=== PATIENT | male | born 1970 | race Caucasian/White ===

== ENCOUNTER → 2017-07-17 | Outpatient (REF) | payer BC, OTHER ==
[2017-07-17 15:18] LABS: BASO # 0.1 10^3/uL (0.0-0.2); BASO % 0.9 % (0.0-1.0); EOS # 0.1 10^3/uL (0.0-0.50); EOS % 2.2 % (0.0-3.0); HEMATOCRIT 45.1 % (42.0-52.0); HEMOGLOBIN 15.5 g/dl (14.0-18.0); IMMATURE GRANULOCYTE % 0.2 % (0-3.0); LYMPH # 2.2 10^3/uL (1.5-4.5); LYMPH % 39.8 % (24.0-44.0); MEAN CORPUSCULAR HEMOGLOBIN 30.3 pg (27.0-33.0); MEAN CORPUSCULAR HGB CONC 34.4 g/dl (32.0-36.5); MEAN CORPUSCULAR VOLUME 88.3 fl (80.0-96.0); MONO # 0.4 10^3/uL (0.0-0.8); NEUTROPHILS # 2.7 10^3/uL (1.8-7.7); NEUTROPHILS % 48.9 % (36.0-66.0); PLATELET COUNT, AUTOMATED 220 10^3/uL (150-450); RED BLOOD COUNT 5.11 10^6/uL (4.30-6.10); RED CELL DISTRIBUTION WIDTH 11.9 % (11.5-14.5); WHITE BLOOD COUNT 5.5 10^3/uL (4.0-10.0)
[2017-07-17 15:40] LABS: FERRITIN 75 NG/ML (26-388); IRON (FE) 111 UG/DL (65-175); TOTAL IRON BINDING CAPACITY 317 UG/DL (250-450)
[2017-07-17 16:15] LABS: VITAMIN B12 LEVEL 792 PG/ML
[2017-07-17 16:16] LABS: FOLATE 20.6 NG/ML
== END ==
LOC: M LABNEURO 13:48
DX: D50.9 Iron deficiency anemia, unspecified (principal)
CPT/HCPCS: 82746

== ENCOUNTER → 2019-12-05 | Outpatient (CLI) | payer BC, OTHER ==
[~2019-12-05] MED LIST: ASPI81TA26 PO; ATOR40TA75 PO; CO Q200C10 PO; DOXY-350 PO; FLAX1CAP5 PO; NO ITAB PO; OXYC1TAB23 PO; ROPI3TAB3 PO; SERT50TA29 PO; TIZA6CAP PO; TRAM50TA2 PO; VALA500T5 PO
== END ==
LOC: M LABSMTC 12:28
PROVIDERS: ATTEND Anesthesiology
DX: Z03.818 Encounter for observation for suspected exposure to other biological agents ruled out (principal); Z11.59 Encounter for screening for other viral diseases
CPT/HCPCS: C9803; U0003

== ENCOUNTER 2019-12-10 10:06 | Day surgery (SDC) | payer BC, OTHER ==
[~2019-12-10] VITALS: Ht 175.3 cm; Wt 100.2 kg
[~2019-12-10 10:06] MED LIST changes: +LIDOCAINE 1% MDV 20ML VIAL SQ PRN; +LR 1,000 ML IV ONE
[2019-12-10] MEDS ORDERED: MIDAZOLAM INJ 2MG/2ML VIAL (J2250 PER 1MG) As Ordered ONE (11:02)
[2019-12-10] MEDS ORDERED: ROCURONIUM BROMIDE 50 MG/5 ML VIAL As Ordered ONE ×2 (11:02→11:48)
[2019-12-10] MEDS ORDERED: propofoL 200 MG/20 ML VIAL As Ordered ONE ×2 (11:02→12:31)
[2019-12-10] MEDS ORDERED: LIDOCAINE 2% 100MG/5ML SDV (FOR ANES.) As Ordered ONE (11:02)
[2019-12-10] MEDS ORDERED: fentaNYL 100 MCG/2 ML INJECTION (J3010) As Ordered ONE ×3 (11:02→12:39)
[2019-12-10] MEDS ORDERED: OXYMETAZOLINE NASAL SPRAY (AFRIN) As Ordered ONE (11:15)
[2019-12-10] MEDS ORDERED: METHYLENE BLUE 0.5% (5MG/ML) 10 ML AMP (PROVAYBLUE) As Ordered ONE (11:15)
[2019-12-10] MEDS ORDERED: LIDOCAINE W/EPINEPHRINE 1% 20ML VIAL As Ordered ONE (11:15)
[2019-12-10] MEDS ORDERED: EPINEPHrine 1MG/ML INJ 30ML MD-VIAL As Ordered ONE (11:16)
--- NOTE | 2019-12-10 11:25 | ECGEPIP ---
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
[2019-12-10] MEDS ORDERED: dexameTHASONE 4 MG/ML 1ML VIAL (J1100 PER 1MG) As Ordered ONE (11:42)
[2019-12-10] MEDS ORDERED: ONDANSETRON 4MG/2ML VIAL As Ordered ONE (11:47)
[2019-12-10] MEDS ORDERED: ACETAMINOPHEN 1000MG 100ML IV BTL (OFIRMEV) (J0131 PER 10MG) As Ordered ONE (11:47)
[2019-12-10] MEDS ORDERED: fentaNYL 100 MCG/2 ML INJECTION (J3010) IV PRN (13:15)
[2019-12-10] MEDS ORDERED: PERCOCET 5MG/325MG TAB PO PRN ×2 (13:15→13:30)
[2019-12-10] MEDS ORDERED: METOCLOPRAMIDE INJ 10MG/2ML VIAL (J2765 PER 1) IV PRN (13:15)
[2019-12-10] MEDS ORDERED: LR 1,000 ML IV SCH (13:15)
[2019-12-10] MEDS ORDERED: ONDANSETRON 4MG/2ML VIAL IV PRN (13:15)
[2019-12-10] MEDS ORDERED: MEPERIDINE INJ 25 MG/ML VIAL (J2175) IV PRN (13:15)
[2019-12-10 15:00] VITALS: BP 167/79
[2019-12-10] MEDS ORDERED: IBUPROFEN 800 MG TAB PO SCH (16:00)
== END 2019-12-10 15:07 | disposition home or self-care (01) ==
LOC: M SDC 10:06
PROVIDERS: ATTEND Specialist
DX: J32.0 Chronic maxillary sinusitis (principal); J34.2 Deviated nasal septum; G47.30 Sleep apnea, unspecified; E78.5 Hyperlipidemia, unspecified; F41.9 Anxiety disorder, unspecified; G25.81 Restless legs syndrome; Z79.82 Long term (current) use of aspirin; Z79.899 Other long term (current) drug therapy
CPT/HCPCS: 30520; 31254; 31267; 87070; 87075; 87186; 87205; 88300; 88305; 93005; J0131; J1100; J2250; J2405; J3010; Q9968

== ENCOUNTER → 2021-06-26 | Outpatient (CLI) | payer BC, OTHER ==
[~2021-06-26] MED LIST changes: +CONT1TAB PO; -LIDOCAINE 1% MDV 20ML VIAL SQ PRN; -LR 1,000 ML IV ONE
== END ==
LOC: M LABSMTC 10:16
PROVIDERS: ATTEND Anesthesiology
DX: Z01.818 Encounter for other preprocedural examination (principal); Z11.52 Encounter for screening for COVID-19

== ENCOUNTER → 2021-08-14 | Outpatient (CLI) | payer BC, OTHER ==
[~2021-08-14] MED LIST changes: +ROPI2TAB3 PO
== END ==
LOC: M LABSMTC 09:41
PROVIDERS: ATTEND Anesthesiology
DX: Z01.812 Encounter for preprocedural laboratory examination (principal); Z20.822 Contact with and (suspected) exposure to COVID-19

== ENCOUNTER 2021-08-19 08:52 | Day surgery (SDC) | payer BC, OTHER ==
[~2021-08-19] VITALS: Ht 175.3 cm; Wt 99.8 kg
[~2021-08-19 08:52] MED LIST changes: +LIDOCAINE 2% 100MG/5ML SDV (FOR ANES.) As Ordered ONE; +NS 1,000 ML IV ONE; +propofoL 200 MG/20 ML VIAL As Ordered ONE
[2021-08-19] MEDS ORDERED: propofoL 200 MG/20 ML VIAL As Ordered ONE (10:41)
[2021-08-19 11:20] VITALS: BP 103/56
== END 2021-08-19 11:19 | disposition home or self-care (01) ==
LOC: M OPP 08:52
PROVIDERS: ATTEND Surgery
DX: Z12.11 Encounter for screening for malignant neoplasm of colon (principal); D12.6 Benign neoplasm of colon, unspecified; E78.5 Hyperlipidemia, unspecified; G25.81 Restless legs syndrome; G47.30 Sleep apnea, unspecified; Z79.82 Long term (current) use of aspirin; Z79.899 Other long term (current) drug therapy

== ENCOUNTER → 2025-05-26 | Outpatient (CLI) | payer BC ==
[~2025-05-26] MED LIST changes: -DOXY-350 PO; +DOXY-440 PO; -LIDOCAINE 2% 100MG/5ML SDV (FOR ANES.) As Ordered ONE; -NS 1,000 ML IV ONE; -ROPI2TAB3 PO; +ROPI2TAB46 PO; +ROPI3TAB18 PO; -ROPI3TAB3 PO; -propofoL 200 MG/20 ML VIAL As Ordered ONE
== END ==
LOC: M PLAIMG 08:58
PROVIDERS: ATTEND Physician Assistant Medical
DX: J34.829 Nasal valve collapse, unspecified (principal)